=== PATIENT | female | born 1990 | race Caucasian/White ===

== ENCOUNTER 2021-01-21 03:40 | Inpatient (IN) | payer OTHER ==
[2021-01-21] MEDS: ELECTROLYTE-148 SOLN 1,000 ML IV SCH (04:00)
[2021-01-21] MEDS ORDERED: AMPICILLIN - 2 GM in SODIUM CHLORIDE 100 ML IVPB ONE (06:00)
[2021-01-21] MEDS ORDERED: AMPICILLIN SODIUM 2 GM VIAL ONE (06:29)
[2021-01-21 06:38] LABS: BASO % 0.5 % (0-2.0); HEMATOCRIT 36.4 % (32.4-45.2); HEMOGLOBIN 12.4 GM/dL (10.7-15.3); LYMPH % 23.9 % (8-40); MCH 30.6 pg (25.7-33.7); MEAN CELL VOLUME 89.9 fl (80-96); MEAN PLT VOLUME 8.7 fl (7.5-11.1); MONO % 9.3 % (3.8-10.2); NEUT % 63.3 % (42.8-82.8); PLATELET COUNT 213 K/MM3 (134-434); RBC 4.05 M/mm3 (3.60-5.2); RDW 13.9 % (11.6-15.6); WHITE BLOOD COUNT 9.6 K/mm3 (4.0-10.0)
[2021-01-21 06:43] LABS: INR 0.89 (0.83-1.09)
[2021-01-21 06:46] LABS: ACTIVATED PTT 25.8 SECONDS (25.2-36.5)
[2021-01-21 06:55] LABS: BLOOD UREA NITROGEN 6.5 mg/dL (7-18)
[2021-01-21 06:58] LABS: CREATININE 0.5 mg/dL (0.55-1.3)
[2021-01-21 07:10] VITALS: BMI 31.4
[2021-01-21] MEDS ORDERED: OXYTOCIN 30 UNITS in 0.9% NS 30 UNIT/500 ML INFUS.BAG IVPB ONE (09:39)
[2021-01-21] MEDS: AMPICILLIN - 1 GM in SODIUM CHLORIDE 100 ML IVPB SCH ×3 (10:00→18:32)
[2021-01-21] MEDS ORDERED: AMPICILLIN SODIUM 1 GM VIAL ONE ×4 (10:09→22:06)
[2021-01-21] MEDS ORDERED: PROMETHAZINE HCL 25 MG/1 ML VIAL IVPB ONE (12:21)
[2021-01-21] MEDS ORDERED: BUTORPHANOL TARTRATE 1 MG/ML VIAL IVPB ONE (12:21)
[2021-01-21] MEDS ORDERED: OXYTOCIN 30 UNITS in 0.9% NS 30 UNIT/500 ML INFUS.BAG IVPB SCH (12:30)
[2021-01-21] MEDS ORDERED: DEXTROSE 5%-LACTATED RINGERS 1,000 ML IV SCH (12:30)
[2021-01-21] MEDS ORDERED: BUTORPHANOL TARTRATE 2 MG/ML VIAL ONE (15:13)
[2021-01-21] MEDS ORDERED: PROMETHAZINE HCL 25 MG/1 ML VIAL ONE (15:14)
[2021-01-21 16:57] LABS: BASO % 0.6 % (0-2.0); EOS % 2.4 % (0-4.5); HEMATOCRIT 36.5 % (32.4-45.2); HEMOGLOBIN 12.4 GM/dL (10.7-15.3); LYMPH % 19.5 % (8-40); MCH 30.4 pg (25.7-33.7); MCHC 33.9 g/dl (32.0-36.0); MEAN CELL VOLUME 89.8 fl (80-96); MEAN PLT VOLUME 8.6 fl (7.5-11.1); MONO % 9.6 % (3.8-10.2); NEUT % 67.9 % (42.8-82.8); PLATELET COUNT 222 K/MM3 (134-434); RBC 4.07 M/mm3 (3.60-5.2); RDW 13.8 % (11.6-15.6)
[2021-01-21 17:12] LABS: CALCIUM 8.6 mg/dL (8.5-10.1)
[2021-01-21 17:13] LABS: ALBUMIN 3.1 g/dl (3.4-5.0); BLOOD UREA NITROGEN 4.5 mg/dL (7-18)
[2021-01-21 17:15] LABS: BILIRUBIN,DIRECT 0.2 mg/dL (0.0-0.2); CREATININE 0.4 mg/dL (0.55-1.3); URIC ACID 4.2 mg/dL (2.6-7.2)
[2021-01-21 17:17] LABS: BILIRUBIN,TOTAL 0.6 mg/dL (0.2-1); TOT PROT 6.8 g/dl (6.4-8.2)
[2021-01-21] MEDS ORDERED: FENTANYL/BUPIVACAINE/NS/PF - PCEA - 50 ML DISP.SYRIN EP ONE ×2 (17:18→22:13)
[2021-01-21] MEDS ORDERED: PCA PUMP NR ONE ×2 (17:19→22:13)
[2021-01-21] MEDS ORDERED: BUPIVACAINE HCL/PF 0.25% (2.5MG/ML) 10 ML VIAL ONE (17:24)
[2021-01-21] MEDS: FENTANYL/BUPIVACAINE/NS/PF - PCEA - 50 ML DISP.SYRIN EP SCH (17:45)
[2021-01-21] MEDS ORDERED: NALOXONE HCL 0.4 MG/ML VIAL IVPUSH PRN (18:01)
[2021-01-22] MEDS: AMPICILLIN - 1 GM in SODIUM CHLORIDE 100 ML IVPB SCH ×4 (00:43→13:21)
[2021-01-22] MEDS ORDERED: FENTANYL/BUPIVACAINE/NS/PF - PCEA - 50 ML DISP.SYRIN EP ONE ×3 (02:01→07:45)
[2021-01-22] MEDS ORDERED: AMPICILLIN SODIUM 1 GM VIAL ONE ×2 (04:44→06:39)
[2021-01-22] MEDS ORDERED: PCA PUMP NR ONE (07:45)
[2021-01-22] MEDS ORDERED: OXYTOCIN 20 UNITS in 0.9% NS 20 UNIT/1,000 ML INFUS.BAG IV ONE (07:45)
[2021-01-22] MEDS ORDERED: BUPIVACAINE HCL/PF 0.25% (2.5MG/ML) 10 ML VIAL ONE (07:48)
[2021-01-22] MEDS: FENTANYL/BUPIVACAINE/NS/PF - PCEA - 50 ML DISP.SYRIN EP SCH (07:50)
[2021-01-22] MEDS: ELECTROLYTE-148 SOLN 1,000 ML IV SCH (08:35)
[2021-01-22] MEDS ORDERED: LIDOCAINE HCL 1% PRESERVATIVE FREE - 30ML VIAL ONE (11:25)
[2021-01-22] MEDS ORDERED: oxyCODONE HCL 5 MG TABLET PO PRN (12:19)
[2021-01-22] MEDS ORDERED: BENZOCAINE 20% 57 GM BOTTLE TP PRN (12:19)
[2021-01-22] MEDS ORDERED: METHYLERGONOVINE MALEATE 0.2 MG/1 ML AMP IM PRN (12:19)
[2021-01-22] MEDS ORDERED: BISACODYL 10 MG SUPP.RECT RC PRN (12:19)
[2021-01-22] MEDS ORDERED: WITCH HAZEL 50% (TUCKS) 40 PAD/JAR PAD TP PRN (12:19)
[2021-01-22] MEDS ORDERED: BENZOCAINE 28 GM HEMORRHOIDAL OINTMENT TP PRN (12:19)
[2021-01-22] MEDS ORDERED: OXYTOCIN 20 UNITS in 0.9% NS 20 UNIT/1,000 ML INFUS.BAG IV SCH (13:45)
[2021-01-22 13:57] LABS: CORD HCO3 20.9 mmHg (20-29); CORD PCO2 53.3 mmHg (30-78); CORD pH 7.211 (7.14-7.44)
[2021-01-22 13:59] LABS: CORD BASE EXCESS -5.6 mmol/L (0-2); CORD HCO3 20.6 mmHg (20-29); CORD PCO2 42.4 mmHg (30-78); CORD pH 7.304 (7.14-7.44)
[2021-01-22] MEDS ORDERED: FLU VACCINE (FLULAVAL) PF 60 MCG/0.5 ML SYRINGE 2020-2021 IM ONE (14:34)
[2021-01-22] MEDS: IBUPROFEN 600 MG TABLET (FP) PO PRN (14:56)
[2021-01-22] MEDS: ACETAMINOPHEN 325 MG TABLET (FP) PO PRN ×2 (14:57→20:56)
[2021-01-22] MEDS: FERROUS SO4 325 MG TABLET (FP) PO SCH (17:25)
[2021-01-23] MEDS: IBUPROFEN 600 MG TABLET (FP) PO PRN ×3 (02:00→17:54)
[2021-01-23] MEDS: ACETAMINOPHEN 325 MG TABLET (FP) PO PRN ×3 (02:01→17:54)
[2021-01-23 08:39] LABS: BASO % 0.3 % (0-2.0); EOS % 3.4 % (0-4.5); HEMATOCRIT 28.3 % (32.4-45.2); HEMOGLOBIN 9.6 GM/dL (10.7-15.3); LYMPH % 13.4 % (8-40); MCH 30.5 pg (25.7-33.7); MCHC 33.8 g/dl (32.0-36.0); MEAN CELL VOLUME 90.1 fl (80-96); MEAN PLT VOLUME 8.6 fl (7.5-11.1); MONO % 9.2 % (3.8-10.2); NEUT % 73.7 % (42.8-82.8); PLATELET COUNT 170 K/MM3 (134-434); RBC 3.14 M/mm3 (3.60-5.2); RDW 14.1 % (11.6-15.6); WHITE BLOOD COUNT 15.9 K/mm3 (4.0-10.0)
[2021-01-23] MEDS: FERROUS SO4 325 MG TABLET (FP) PO SCH ×3 (09:59→17:09)
[2021-01-23] MEDS: PRENATAL VITAMINS W/ FOLIC ACID TABLET (FP) PO SCH (09:59)
[2021-01-23] MEDS ORDERED: FLU VACCINE (FLULAVAL) PF 60 MCG/0.5 ML SYRINGE 2020-2021 IM ONE (10:00)
[2021-01-23] MEDS ORDERED: SENNOSIDES/DOCUSATE COMBO (SENNA PLUS) TABLET (UD) PO PRN (22:00)
[2021-01-24] MEDS: IBUPROFEN 600 MG TABLET (FP) PO PRN ×2 (02:10→09:28)
[2021-01-24] MEDS: ACETAMINOPHEN 325 MG TABLET (FP) PO PRN ×2 (02:11→09:28)
[2021-01-24] MEDS: FERROUS SO4 325 MG TABLET (FP) PO SCH ×2 (09:29→13:16)
[2021-01-24] MEDS: PRENATAL VITAMINS W/ FOLIC ACID TABLET (FP) PO SCH (09:29)
[2021-01-24 10:48] VITALS: BP 130/80; PULSE 90; TEMP 97.9
== END 2021-01-24 14:00 | disposition home or self-care (01) | DRG 560 ==
LOC: JDEL 03:40 → JLDR 04:30 → J3W 01-22 01:50
PROVIDERS: ADMIT Obstetrics & Gynecology; ATTEND Obstetrics & Gynecology
PROC: 10E0XZZ Delivery of Products of Conception, External Approach (ICD-10-PCS; principal; 2021-01-22)
PROC: 0W8NXZZ Division of Female Perineum, External Approach (ICD-10-PCS; 2021-01-22)
PROC: 0KQM0ZZ Repair Perineum Muscle, Open Approach (ICD-10-PCS; 2021-01-22)
DX: O42.02 Full-term premature rupture of membranes, onset of labor within 24 hours of rupture (principal); O69.81X0 Labor and delivery complicated by cord around neck, without compression, not applicable or unspecified; O99.824 Streptococcus B carrier state complicating childbirth; O70.1 Second degree perineal laceration during delivery; Z3A.40 40 weeks gestation of pregnancy; Z37.0 Single live birth
CPT/HCPCS: 36415; 36600; 59409; 80048; 80053; 80076; 82803; 84550; 85025; 85384; 85610; 85730; 86780; 86850; 86900; 86901; 87529; 88307-TC; C9803; G0008; Q2036; U0003; U0005